=== PATIENT | female | born 1985 | race American Indian/Alaskan Native ===

== ENCOUNTER 2020-04-08 14:38 | Inpatient (IN) | payer MEDICAID ==
[2020-04-08] MEDS ORDERED: LACTATED RINGERS 500 ML IV ONE (14:57)
[2020-04-08 16:05] LABS: Mean Corpuscular HGB Conc 29 % (30-34); Platelet Count 144 K/mm3 (140-440); Red Blood Count 3.14 M/mm3 (3.65-5.03)
[2020-04-08 16:09] LABS: Hematocrit 19.1 % (30.3-42.9); Hemoglobin 5.6 gm/dl (10.1-14.3); Mean Corpuscular Volume 61 fl (79-97); Red Cell Distribution Width 20.3 % (13.2-15.2)
[2020-04-08 16:10] LABS: Creatinine,Urine 21.5 mg/dL (0.1-20.0); Protein/Creatinine Ratio,Urine 1.63
[2020-04-08 16:11] LABS: Bacteria,Urine 1+ /HPF (Negative); Bilirubin,Urine NEG (Negative); Blood,Urine NEG (Negative); Color,Urine Straw (Yellow); Urobilinogen,Urine < 2.0 mg/dL (<2.0)
[2020-04-08 16:19] LABS: Alanine Aminotransferase 13 units/L (7-56); Uric Acid 5.4 mg/dL (3.5-7.6)
[2020-04-08] MEDS ORDERED: SODIUM CHLORIDE 0.9% 500 ML 500 ML IV SCH (16:33)
[2020-04-08] MEDS ORDERED: TERBUTALINE 1 MG/1 ML INJ SUB-Q ONE (16:35)
[2020-04-08] MEDS ORDERED: LACTATED RINGERS 1,000 ML ONE (18:58)
--- NOTE | 2020-04-08 20:19 | Ultrasound Report ---
Limited OB ultrasound for biophysical profile FINDINGS: Twin is seen. heart rate for fetus A is 153 bpm. There is vertical pocket o f fluid measuring 5.5 cm. breathing movement, spontaneous motion, posture and tone all score 2 out of 2 with qualitative RADHA also scoring 2 for a total of 8/8. heart rate for fetus B is 157 bpm. Biophysical profile for B is also 8/8. Signer Name: Eyad Willis MD Signed: 04/08/2020 8:14 PM Workstation Name: [id number]
--- NOTE | 2020-04-08 20:25 | Ultrasound Report ---
See prior report Signer Name: Eyad Willis MD Signed: 04/08/2020 8:20 PM Workstation Name: [id number]
[2020-04-09 08:05] LABS: Hematocrit 23.5 % (30.3-42.9); Mean Corpuscular HGB Conc 30 % (30-34); Platelet Count 127 K/mm3 (140-440); Red Blood Count 3.54 M/mm3 (3.65-5.03)
[2020-04-09 08:12] LABS: Mean Corpuscular Volume 66 fl (79-97); Red Cell Distribution Width 25.8 % (13.2-15.2)
[2020-04-09 08:28] LABS: Alanine Aminotransferase 16 units/L (7-56); Albumin 2.9 g/dL (3.9-5); BUN/Creatinine Ratio 12; Blood Urea Nitrogen 6 mg/dL (7-17); Calcium 8.1 mg/dL (8.4-10.2); Hemolysis Index 2
--- NOTE | 2020-04-09 08:45 | History and Physical Report ---
History of Present Illness Date of examination: 04/08/20 Date of admission: 04/08/20 14:39 Chief complaint: Facial swelling History of present illness: 34-year-old at 29+4 weeks who presents with a chief complaint of facial swelling. The patient's course is complicated by advanced maternal age, iron deficiency anemia and twin gestation. The patient has been monitored by maternal- medicine for labile blood pressures and was scheduled to p erform a 24-hour urine collection. She is currently not taking antihypertensives. Past History Past Medical History: other (Anemia) Social history: - Obstetrical History Expected Date of Delivery: 06/23/20 Actual Gestation: 29 Week(s) 2 Day(s) : 4 Para: 3 Hx # Term Pregnancies: 3 Number of Pregnancies: 0 Spontaneous Abortions: 0 Induced : 0 Number of Living Children: 4 Medications and Allergies Allergies Allergy/AdvReac Type Severity Reaction Status Date / Time No Known Allergies Allergy Verified 04/08/20 14:57 Home Medications Medication Instructions Recorded Confirmed Last Taken Type Ferrous Sulfate [Ferrous Sulfate 300 mg PO BID #60 ml 11/07/14 04/08/20 Unknown Rx Oral Liq 300 Mg/5 Ml] Active Meds: Active Medications Sodium Chloride (Nacl 0.9% 500 Ml) 500 mls @ 0 mls/hr IV ONCE LEON Review of Systems All systems: negative - Vital Signs Vital signs: Vital Signs Pulse BP 83 147/87 04/08/20 15:15 04/08/20 15:15 Temp Pulse Resp BP Pulse Ox 98.6 F 88 21 182/82 97 04/09/20 07:23 04/09/20 08:42 04/09/20 02:07 04/09/20 08:40 04/09/20 08:42 - Physical Exam Breasts: Positive: deferred Cardiovascular: Regular rate Lungs: Positive: Clear to auscultation Results Result Diagrams: 04/09/20 07:08 04/09/20 07:08 Abnormal lab results 04/08/20 04/08/20 04/08/20 Range/Units 15:54 15:54 15:54 WBC (4.5-11.0) K/mm3 RBC 3.14 L (3.65-5.03) M/mm3 Hgb 5.6 L* (10.1-14.3) gm/dl Hct 19.1 L* (30.3-42.9) % MCV 61 L (79-97) fl MCH 18 L (28-32) pg MCHC 29 L (30-34) % RDW 20.3 H (13.2-15.2) % Plt Count (140-440) K/mm3 Carbon Dioxide (22-30) mmol/L BUN (7-17) mg/dL Creatinine 0.5 L (0.7-1.2) mg/dL Calcium (8.4-10.2) mg/dL Lactate Dehydrogenase 433 H (91-180) units/L Total Protein (6.3-8.2) g/dL Albumin (3.9-5) g/dL Ur Specific [place] 1.002 L (1.003-1.030) Urine Creatinine (0.1-20.0) mg/dL Urine Total Protein (5-11.8) mg/dL Crossmatch 04/08/20 04/08/20 04/09/20 Range/Units 15:54 18:26 07:08 WBC 11.1 H (4.5-11.0) K/mm3 RBC 3.54 L (3.65-5.03) M/mm3 Hgb 7.0 L (10.1-14.3) gm/dl Hct 23.5 L (30.3-42.9) % MCV 66 L (79-97) fl MCH 20 L (28-32) pg MCHC (30-34) % RDW 25.8 H (13.2-15.2) % Plt Count 127 L (140-440) K/mm3 Carbon Dioxide (22-30) mmol/L BUN (7-17) mg/dL Creatinine (0.7-1.2) mg/dL Calcium (8.4-10.2) mg/dL Lactate Dehydrogenase (91-180) units/L Total Protein (6.3-8.2) g/dL Albumin (3.9-5) g/dL Ur Specific [place] (1.003-1.030) Urine Creatinine 21.5 H (0.1-20.0) mg/dL Urine Total Protein 35 H (5-11.8) mg/dL Crossmatch See Detail 04/09/20 Range/Units 07:08 WBC (4.5-11.0) K/mm3 RBC (3.65-5.03) M/mm3 Hgb (10.1-14.3) gm/dl Hct (30.3-42.9) % MCV (79-97) fl MCH (28-32) pg MCHC (30-34) % RDW (13.2-15.2) % Plt Count (140-440) K/mm3 Carbon Dioxide 18 L (22-30) mmol/L BUN 6 L (7-17) mg/dL Creatinine 0.5 L (0.7-1.2) mg/dL Calcium 8.1 L (8.4-10.2) mg/dL Lactate Dehydrogenase (91-180) units/L Total Protein 6.2 L (6.3-8.2) g/dL Albumin 2.9 L (3.9-5) g/dL Ur Specific [place] (1.003-1.030) Urine Creatinine (0.1-20.0) mg/dL Urine Total Protein (5-11.8) mg/dL Crossmatch All other labs normal. Assessment and Plan - Patient Problems (1) Twin gestation in second trimester Current Visit: Yes Status: Acute Plan to address problem: will admit for observation of blood pressures Transfused 2 units packed red blood cells Initiate 24-hour urine collection (2) Elevated blood pressure affecting in second trimester, antepartum Current Visit: Yes Status: Acute (3) Anemia due to chronic blood loss Current Visit: Yes Status: Acute
[2020-04-09] MEDS ORDERED: DOCUSATE SODIUM 100 MG CAP PO PRN (10:00)
[2020-04-09] MEDS: PRENATAL VIT27-FE FUMARATE-FOLIC ACID VIT TAB PO SCH (10:28)
[2020-04-09] MEDS: FERROUS SULFATE 308 MG (62mg Elemental Iron) / 7 ML ELIXIR PO SCH (10:29)
[2020-04-09] MEDS: BETAMET ACET/BETAMET NA PH 6 MG/ML INJ 5 ML MDV IM SCH (10:30)
[2020-04-09 10:57] LABS: Anisocytosis 2+; Band Neutrophils # (Manual) 0.2 K/mm3; Basophils % (Manual) 0 % (0.0-1.8); Hypochromasia 2+; Platelet Estimate Consistent w Auto; Total Cells Counted 100
[2020-04-09] MEDS ORDERED: hydrALAZINE 20 MG/1 ML INJ IV PRN (20:11)
[2020-04-10] MEDS: PRENATAL VIT27-FE FUMARATE-FOLIC ACID VIT TAB PO SCH (09:49)
[2020-04-10] MEDS: FERROUS SULFATE 308 MG (62mg Elemental Iron) / 7 ML ELIXIR PO SCH (09:50)
[2020-04-10] MEDS: BETAMET ACET/BETAMET NA PH 6 MG/ML INJ 5 ML MDV IM SCH (09:53)
[2020-04-10 13:30] LABS: Creatinine,Urine 77.7 mg/dL (0.1-20.0)
[2020-04-10] MEDS ORDERED: SODIUM CHLORIDE 0.9% 500 ML 500 ML IV NR (16:20)
[2020-04-10] MEDS ORDERED: ACETAMINOPHEN 325 MG TAB PO NR (16:20)
[2020-04-10] MEDS ORDERED: diphenhydrAMINE 50 MG/ML VIAL IV NR (16:20)
--- NOTE | 2020-04-10 16:42 | Consultation ---
History of Present Illness Consult date: 04/10/20 Requesting physician: ANALY AGUILAR History of present illness: 34-year-old at 29 5/7 weeks who presents with a chief complaint of fac ial swelling Now with Preeclampsia BP now 130-140/80 Occ elevated BP172/89 but nurse retook BP as cuff was "compressed and when this happens BP's increases but reverts back to 130- 140/80's when not compressed - started on Labetalol Now states facial swelling better Denies CONDE's scotoma or RUQ pain bleeding leaking Pos FM's -------- H/O Anemai has received 2 UPRBC's H/H increased from 5.6/ to 06/01 - Plts borderline Low 144 then 127K AST/ALT 24 Hour urine - 1187 mg Known IUGR Twin A at 3% and Twin B at 19% - APA Dopplers 3.0 Twin A and 2.9 [facility] both Twin A and B Denies med ds, Surg C/S X 2 NKA no C/D/D Abd gravid NT Ext tr edema NT dtr 2/4 no clonus Past History Past Medical History: other (Anemia) - Obstetrical History : 4 Medications and Allergies Allergies Allergy/AdvReac Type Severity Reaction Status Date / Time No Known Allergies Allergy Verified 04/08/20 14:57 Home Medications Medication Instructions Recorded Confirmed Last Taken Type Ferrous Sulfate [Ferrous Sulfate 300 mg PO BID #60 ml 11/07/14 04/08/20 Unknown Rx Oral Liq 300 Mg/5 Ml] Active Meds: Active Medications Acetaminophen (Tylenol) 650 mg PO ONCE NR Stop: 04/10/20 23:59 Diphenhydramine HCl (Benadryl) 25 mg IV ONCE NR Stop: 04/10/20 23:59 Docusate Sodium (Colace) 100 mg PO Q12H PRN PRN Reason: Constipation Ferrous Sulfate (Ferrous Sulfate) 308 mg PO QDAY LEON Last Admin: 04/10/20 09:50 Dose: 308 mg Documented by: Hydralazine HCl (Apresoline) 5 mg IV Q30MIN PRN PRN Reason: Hypertension Sodium Chloride (Nacl 0.9% 500 Ml) 500 mls @ 0 mls/hr IV ONCE LEON Sodium Chloride (Nacl 0.9% 500 Ml) 500 mls @ 0 mls/hr IV ONCE NR Stop: 04/10/20 23:59 Labetalol HCl (Labetalol) 300 mg PO BID [facility] Last Admin: 04/10/20 09:48 Dose: 300 mg Documented by: Multivitamins/Iron/Calcium ( Vitamin) 1 each PO QDAY [facility] Last Admin: 04/10/20 09:49 Dose: 1 each Documented by: - Vital Signs Vital signs: Vital Signs Pulse BP 83 147/87 04/08/20 15:15 04/08/20 15:15 Temp Pulse Resp BP Pulse Ox 98.3 F 80 18 136/77 97 04/10/20 16:05 04/10/20 16:41 04/10/20 16:05 04/10/20 16:41 04/10/20 16:41 Results Result Diagrams: 04/09/20 07:08 04/09/20 07:08 Abnormal lab results 04/08/20 04/10/20 Range/Units 18:26 09:30 Urine Creatinine 77.7 H (0.1-20.0) mg/dL Ur Total Protein 24 Hr 1187.50 H (2-200) mg/dL Urine Total Protein 95 H (5-11.8) mg/dL Crossmatch See Detail All other labs normal. Assessment and Plan Impression: 1. Di/Di Twin IUP at 29 5/7 weeks 2. Preeclampsia 3. IUGR Twin A 4. Anemia 5. Prior C/S X 2 6. H/O Receiving Blood Tranfusions "with all pregnancies" 7. MO 8. AMA 9. Borderline Thrombocytopenia Recommendations: 1. Transfuse 2 additional units PRBCs 2. Steroids for FLM 3. BPP and Cord Dopplers twice per week while in house 4. Labetalol 300 BID 5. Repeat CBC and CMP tomorrow 6. Will consider in house management verse close twice weekly A-P surveillance pending labs and review of BP's 7. Will consider Mg for neuroprophylaxis pending labs tomorrow 8. Seq Leg compressors 9. Delivery for S/S of severe preeclampsia or compromise 10. Aim for delivery at 34 weeks if remains stable
--- NOTE | 2020-04-10 17:27 | Progress Note ---
Assessment and Plan 1. Di/Di Twin IUP at 29 5/7 weeks Preeclampsia IUGR Twin A Anemia Prior C/S X 2 H/O Receiving Blood Tranfusions "with all pregnancies" MO AMA Borderline Thrombocytopenia Transfuse 2 additional units PRBCs- last hgb 7 s/p Steroids for FLM BPP and Cord Dopplers twice per week while in house- Labetalol 300 BID Repeat CBC and CMP tomorrow appreciate MFM recommnedations Will consider in house management verse close twice weekly A-P surveillance pending labs and review of BP's Will consider Mg for neuroprophylaxis pending labs tomorrow Seq Leg compressors Delivery for S/S of severe preeclampsia or compromise Aim for delivery at 34 weeks if remains stable Subjective - Subjective Date of service: 04/10/20 Principal diagnosis: elevated BP, edna twins Patient reports: movement normal, no new complaints, no loss of fluid, no vaginal bleeding, no contractions Objective - Vital Signs Vital Signs: Vital Signs - 12hr 04/10/20 04/10/20 04/10/20 05:23 05:26 05:29 Temperature Pulse Rate 77 89 86 Respiratory Rate Blood Pressure Blood Pressure [Left] O2 Sat by Pulse 90 98 93 Oximetry 04/10/20 04/10/20 04/10/20 05:31 05:36 05:41 Temperature Pulse Rate 85 83 81 Respiratory Rate Blood Pressure 132/61 Blood Pressure [Left] O2 Sat by Pulse 96 94 96 Oximetry 04/10/20 04/10/20 04/10/20 05:44 05:46 05:51 Temperature Pulse Rate 88 84 85 Respiratory Rate Blood Pressure Blood Pressure [Left] O2 Sat by Pulse 94 96 96 Oximetry 04/10/20 04/10/20 04/10/20 05:56 06:01 06:06 Temperature Pulse Rate 83 79 82 Respiratory Rate Blood Pressure Blood Pressure [Left] O2 Sat by Pulse 96 97 96 Oximetry 04/10/20 04/10/20 04/10/20 06:11 06:16 06:21 Temperature Pulse Rate 78 82 84 Respiratory Rate Blood Pressure 120/61 Blood Pressure [Left] O2 Sat by Pulse 96 98 98 Oximetry 04/10/20 04/10/20 04/10/20 06:26 06:31 06:36 Temperature Pulse Rate 85 82 84 Respiratory Rate Blood Pressure Blood Pressure [Left] O2 Sat by Pulse 97 97 97 Oximetry 04/10/20 04/10/20 04/10/20 06:40 06:42 06:46 Temperature Pulse Rate 98 H 97 H 86 Respiratory Rate Blood Pressure 169/79 Blood Pressure [Left] O2 Sat by Pulse 100 98 Oximetry 04/10/20 04/10/20 04/10/20 06:51 06:56 07:01 Temperature Pulse Rate 83 81 84 Respiratory Rate Blood Pressure Blood Pressure [Left] O2 Sat by Pulse 97 97 97 Oximetry 04/10/20 04/10/20 04/10/20 07:06 07:07 07:11 Temperature Pulse Rate 80 88 86 Respiratory Rate Blood Pressure 146/82 150/83 Blood Pressure [Left] O2 Sat by Pulse 96 97 Oximetry 04/10/20 04/10/20 04/10/20 07:15 07:16 07:21 Temperature 98.1 F Pulse Rate 85 89 Respiratory 18 Rate Blood Pressure Blood Pressure [Left] O2 Sat by Pulse 97 97 Oximetry 04/10/20 04/10/20 04/10/20 07:39 07:41 07:44 Temperature Pulse Rate 83 82 85 Respiratory Rate Blood Pressure 144/74 144/74 Blood Pressure [Left] O2 Sat by Pulse 99 99 Oximetry 04/10/20 04/10/20 04/10/20 07:49 07:54 07:58 Temperature Pulse Rate 89 85 79 Respiratory Rate Blood Pressure Blood Pressure [Left] O2 Sat by Pulse 100 99 98 Oximetry 04/10/20 04/10/20 04/10/20 08:03 08:08 08:11 Temperature Pulse Rate 80 87 82 Respiratory Rate Blood Pressure 143/76 Blood Pressure [Left] O2 Sat by Pulse 97 98 Oximetry 04/10/20 04/10/20 04/10/20 08:13 08:18 08:23 Temperature Pulse Rate 84 79 83 Respiratory Rate Blood Pressure Blood Pressure [Left] O2 Sat by Pulse 97 97 97 Oximetry 04/10/20 04/10/20 04/10/20 08:28 08:33 08:39 Temperature Pulse Rate 79 81 80 Respiratory Rate Blood Pressure Blood Pressure [Left] O2 Sat by Pulse 98 97 97 Oximetry 04/10/20 04/10/20 04/10/20 08:41 08:44 08:49 Temperature Pulse Rate 80 81 83 Respiratory Rate Blood Pressure 145/75 Blood Pressure [Left] O2 Sat by Pulse 98 98 Oximetry 04/10/20 04/10/20 04/10/20 08:54 08:59 09:00 Temperature Pulse Rate 86 86 78 Respiratory Rate Blood Pressure 145/77 Blood Pressure [Left] O2 Sat by Pulse 100 98 Oximetry 04/10/20 04/10/20 04/10/20 09:04 09:09 09:11 Temperature Pulse Rate 81 82 86 Respiratory Rate Blood Pressure 147/79 Blood Pressure [Left] O2 Sat by Pulse 97 97 Oximetry 04/10/20 04/10/20 04/10/20 09:14 09:19 09:24 Temperature Pulse Rate 101 H 82 86 Respiratory Rate Blood Pressure Blood Pressure [Left] O2 Sat by Pulse 99 98 99 Oximetry 04/10/20 04/10/20 04/10/20 09:29 09:34 09:39 Temperature Pulse Rate 96 H 109 H 95 H Respiratory Rate Blood Pressure Blood Pressure [Left] O2 Sat by Pulse 98 99 97 Oximetry 04/10/20 04/10/20 04/10/20 09:41 09:44 09:46 Temperature Pulse Rate 96 H 96 H 84 Respiratory Rate Blood Pressure 161/79 153/76 Blood Pressure [Left] O2 Sat by Pulse 99 Oximetry 04/10/20 04/10/20 04/10/20 09:48 09:49 09:54 Temperature Pulse Rate 81 81 93 H Respiratory Rate Blood Pressure 153/76 Blood Pressure [Left] O2 Sat by Pulse 98 99 Oximetry 04/10/20 04/10/20 04/10/20 09:59 10:04 10:09 Temperature Pulse Rate 91 H 87 85 Respiratory Rate Blood Pressure Blood Pressure [Left] O2 Sat by Pulse 97 98 98 Oximetry 04/10/20 04/10/20 04/10/20 10:11 10:14 10:19 Temperature Pulse Rate 81 83 85 Respiratory Rate Blood Pressure 144/75 Blood Pressure [Left] O2 Sat by Pulse 97 98 Oximetry 04/10/20 04/10/20 04/10/20 10:24 10:29 10:35 Temperature Pulse Rate 84 82 89 Respiratory Rate Blood Pressure Blood Pressure [Left] O2 Sat by Pulse 98 98 97 Oximetry 04/10/20 04/10/20 04/10/20 10:40 10:41 10:45 Temperature Pulse Rate 83 80 86 Respiratory Rate Blood Pressure 143/81 Blood Pressure [Left] O2 Sat by Pulse 98 97 Oximetry 04/10/20 04/10/20 04/10/20 10:50 10:55 11:00 Temperature Pulse Rate 80 81 84 Respiratory Rate Blood Pressure Blood Pressure [Left] O2 Sat by Pulse 98 98 97 Oximetry 04/10/20 04/10/20 04/10/20 11:05 11:10 11:11 Temperature Pulse Rate 84 89 85 Respiratory Rate Blood Pressure 172/89 Blood Pressure [Left] O2 Sat by Pulse 98 98 Oximetry 04/10/20 04/10/20 04/10/20 11:15 11:20 11:21 Temperature Pulse Rate 81 83 78 Respiratory Rate Blood Pressure Blood Pressure [Left] O2 Sat by Pulse 97 97 94 Oximetry 04/10/20 04/10/20 04/10/20 11:25 11:30 11:32 Temperature 98.3 F Pulse Rate 81 82 85 Respiratory 18 Rate Blood Pressure 134/82 Blood Pressure [Left] O2 Sat by Pulse 94 95 Oximetry 04/10/20 04/10/20 04/10/20 11:35 11:40 11:41 Temperature Pulse Rate 80 81 80 Respiratory Rate Blood Pressure 139/82 Blood Pressure [Left] O2 Sat by Pulse 94 96 Oximetry 04/10/20 04/10/20 04/10/20 11:45 11:50 11:55 Temperature Pulse Rate 82 82 84 Respiratory Rate Blood Pressure Blood Pressure [Left] O2 Sat by Pulse 96 95 95 Oximetry 04/10/20 04/10/20 04/10/20 11:57 12:00 12:05 Temperature Pulse Rate 81 86 82 Respiratory Rate Blood Pressure Blood Pressure [Left] O2 Sat by Pulse 94 96 96 Oximetry 04/10/20 04/10/20 04/10/20 12:10 12:11 12:13 Temperature Pulse Rate 88 82 87 Respiratory Rate Blood Pressure 140/75 Blood Pressure [Left] O2 Sat by Pulse 97 93 Oximetry 04/10/20 04/10/20 04/10/20 12:15 12:20 12:25 Temperature Pulse Rate 88 90 93 H Respiratory Rate Blood Pressure Blood Pressure [Left] O2 Sat by Pulse 97 97 95 Oximetry 04/10/20 04/10/20 04/10/20 12:28 12:30 12:35 Temperature Pulse Rate 91 H 90 86 Respiratory Rate Blood Pressure Blood Pressure [Left] O2 Sat by Pulse 92 92 100 Oximetry 04/10/20 04/10/20 04/10/20 12:40 12:41 12:45 Temperature Pulse Rate 85 83 86 Respiratory Rate Blood Pressure 124/58 Blood Pressure [Left] O2 Sat by Pulse 98 97 Oximetry 04/10/20 04/10/20 04/10/20 12:50 12:54 13:00 Temperature Pulse Rate 85 88 84 Respiratory Rate Blood Pressure Blood Pressure [Left] O2 Sat by Pulse 97 97 97 Oximetry 04/10/20 04/10/20 04/10/20 13:05 13:10 13:11 Temperature Pulse Rate 85 83 80 Respiratory Rate Blood Pressure 140/63 Blood Pressure [Left] O2 Sat by Pulse 97 98 Oximetry 04/10/20 04/10/20 04/10/20 13:15 13:20 13:25 Temperature Pulse Rate 88 82 85 Respiratory Rate Blood Pressure Blood Pressure [Left] O2 Sat by Pulse 99 97 97 Oximetry 04/10/20 04/10/20 04/10/20 13:30 13:35 13:40 Temperature Pulse Rate 84 85 80 Respiratory Rate Blood Pressure Blood Pressure [Left] O2 Sat by Pulse 96 95 98 Oximetry 04/10/20 04/10/20 04/10/20 13:41 13:45 13:49 Temperature Pulse Rate 90 83 86 Respiratory Rate Blood Pressure 147/79 Blood Pressure [Left] O2 Sat by Pulse 96 94 Oximetry 04/10/20 04/10/20 04/10/20 13:50 13:55 14:00 Temperature Pulse Rate 83 95 H 86 Respiratory Rate Blood Pressure Blood Pressure [Left] O2 Sat by Pulse 95 96 98 Oximetry 04/10/20 04/10/20 04/10/20 14:05 14:10 14:11 Temperature Pulse Rate 79 99 H 88 Respiratory Rate Blood Pressure 134/71 Blood Pressure [Left] O2 Sat by Pulse 98 98 Oximetry 04/10/20 04/10/20 04/10/20 14:15 14:20 14:25 Temperature Pulse Rate 81 92 H 91 H Respiratory Rate Blood Pressure Blood Pressure [Left] O2 Sat by Pulse 97 99 99 Oximetry 04/10/20 04/10/20 04/10/20 14:30 14:35 14:40 Temperature Pulse Rate 93 H 85 88 Respiratory Rate Blood Pressure Blood Pressure [Left] O2 Sat by Pulse 98 98 99 Oximetry 06/11/2904/10/20 04/10/20 14:41 14:45 14:50 Temperature Pulse Rate 93 H 92 H 86 Respiratory Rate Blood Pressure 155/80 Blood Pressure [Left] O2 Sat by Pulse 98 98 Oximetry 04/10/20 04/10/20 04/10/20 14:55 15:00 15:11 Temperature Pulse Rate 85 95 H 96 H Respiratory Rate Blood Pressure 153/83 Blood Pressure [Left] O2 Sat by Pulse 98 99 100 Oximetry 04/10/20 04/10/20 04/10/20 15:14 15:15 15:16 Temperature Pulse Rate 87 88 89 Respiratory Rate Blood Pressure 162/79 151/83 Blood Pressure [Left] O2 Sat by Pulse 100 Oximetry 04/10/20 04/10/20 04/10/20 15:21 15:26 15:31 Temperature Pulse Rate 86 81 86 Respiratory Rate Blood Pressure Blood Pressure [Left] O2 Sat by Pulse 99 99 99 Oximetry 04/10/20 04/10/20 04/10/20 15:36 15:41 15:46 Temperature Pulse Rate 88 93 H 85 Respiratory Rate Blood Pressure 171/85 Blood Pressure [Left] O2 Sat by Pulse 99 99 99 Oximetry 04/10/20 04/10/20 04/10/20 15:51 15:56 16:01 Temperature Pulse Rate 86 82 108 H Respiratory Rate Blood Pressure Blood Pressure [Left] O2 Sat by Pulse 99 100 100 Oximetry 04/10/20 04/10/20 04/10/20 16:03 16:05 16:06 Temperature 98.3 F Pulse Rate 91 H 83 Respiratory 18 Rate Blood Pressure 145/84 Blood Pressure [Left] O2 Sat by Pulse 100 Oximetry 04/10/20 04/10/20 04/10/20 16:10 16:11 16:16 Temperature Pulse Rate 86 87 82 Respiratory Rate Blood Pressure 151/82 Blood Pressure [Left] O2 Sat by Pulse 98 99 Oximetry 04/10/20 04/10/20 04/10/20 16:20 16:26 16:31 Temperature Pulse Rate 90 89 92 H Respiratory Rate Blood Pressure Blood Pressure [Left] O2 Sat by Pulse 98 99 100 Oximetry 04/10/20 04/10/20 04/10/20 16:36 16:41 16:46 Temperature Pulse Rate 84 80 84 Respiratory Rate Blood Pressure 136/77 Blood Pressure [Left] O2 Sat by Pulse 99 97 98 Oximetry 04/10/20 04/10/20 04/10/20 16:51 16:56 17:01 Temperature Pulse Rate 84 82 85 Respiratory Rate Blood Pressure Blood Pressure [Left] O2 Sat by Pulse 98 99 98 Oximetry 04/10/20 04/10/20 04/10/20 17:06 17:11 17:16 Temperature Pulse Rate 82 85 86 Respiratory Rate Blood Pressure 140/78 Blood Pressure [Left] O2 Sat by Pulse 98 98 99 Oximetry 04/10/20 04/10/20 17:17 17:21 Temperature 99.1 F Pulse Rate 82 91 H Respiratory 20 Rate Blood Pressure Blood Pressure 140/78 [Left] O2 Sat by Pulse 99 99 Oximetry - Exam Breasts: normal Cardiovascular: Regular rate, Normal S1 Lungs: Clear to auscultation, Normal air movement Abdomen: Present: normal appearance, soft, normal bowel sounds. Absent: distention, tenderness, guarding Vulva: both: normal Uterus: Present: normal, firm, fundal height below umbilicus. Absent: bogginess, tenderness FHR: auscultation normal Extremities: normal Deep Tendon Reflex Grade: Normal +2 - Labs Labs: Abnormal Labs 04/08/20 04/08/20 04/08/20 15:54 15:54 15:54 WBC RBC 3.14 L Hgb 5.6 L* Hct 19.1 L* MCV 61 L MCH 18 L MCHC 29 L RDW 20.3 H Plt Count Seg Neuts % (Manual) Lymphocytes % (Manual) Nucleated RBC % Seg Neutrophils # Man Lymphocytes # (Manual) Carbon Dioxide BUN Creatinine 0.5 L Calcium Lactate Dehydrogenase 433 H Total Protein Albumin Ur Specific [place] 1.002 L Urine Creatinine Ur Total Protein 24 Hr Urine Total Protein Crossmatch 04/08/20 04/08/20 04/09/20 15:54 18:26 07:08 WBC 11.1 H RBC 3.54 L Hgb 7.0 L Hct 23.5 L MCV 66 L MCH 20 L MCHC RDW 25.8 H Plt Count 127 L Seg Neuts % (Manual) 84.0 H Lymphocytes % (Manual) 7.0 L Nucleated RBC % 7.0 H Seg Neutrophils # Man 9.3 H Lymphocytes # (Manual) 0.8 L Carbon Dioxide BUN Creatinine Calcium Lactate Dehydrogenase Total Protein Albumin Ur Specific [place] Urine Creatinine 21.5 H Ur Total Protein 24 Hr Urine Total Protein 35 H Crossmatch See Detail 04/09/20 04/10/20 07:08 09:30 WBC RBC Hgb Hct MCV MCH MCHC RDW Plt Count Seg Neuts % (Manual) Lymphocytes % (Manual) Nucleated RBC % Seg Neutrophils # Man Lymphocytes # (Manual) Carbon Dioxide 18 L BUN 6 L Creatinine 0.5 L Calcium 8.1 L Lactate Dehydrogenase Total Protein 6.2 L Albumin 2.9 L Ur Specific [place] Urine Creatinine 77.7 H Ur Total Protein 24 Hr 1187.50 H Urine Total Protein 95 H Crossmatch Laboratory Results - last 24 hr 04/08/20 04/10/20 18:26 09:30 Urine Total Volume 1250 Urine Creatinine 77.7 H Ur Creatinine 24 Hour 1.0 Ur Total Protein 24 Hr 1187.50 H Urine Urea Nitrogen 316 Ur Urea Nitrogen 24 Hr 3.95 Urine Total Protein 95 H Crossmatch See Detail
[2020-04-11 01:32] LABS: Hematocrit 25.5 % (30.3-42.9); Hemoglobin 7.9 gm/dl (10.1-14.3); Mean Corpuscular HGB Conc 31 % (30-34); Platelet Count 152 K/mm3 (140-440); Red Blood Count 3.74 M/mm3 (3.65-5.03)
[2020-04-11 01:37] LABS: Mean Corpuscular Volume 68 fl (79-97); Red Cell Distribution Width 28.4 % (13.2-15.2)
[2020-04-11] MEDS ORDERED: LACTATED RINGERS 1,000 ML IV SCH (03:00)
[2020-04-11 07:42] LABS: Alanine Aminotransferase 16 units/L (7-56); Albumin 2.8 g/dL (3.9-5); BUN/Creatinine Ratio 12; Blood Urea Nitrogen 6 mg/dL (7-17); Calcium 8.3 mg/dL (8.4-10.2); Hemolysis Index 2
[2020-04-11 07:43] LABS: Hematocrit 22.4 % (30.3-42.9); Hemoglobin 6.9 gm/dl (10.1-14.3); Mean Corpuscular HGB Conc 31 % (30-34); Platelet Count 134 K/mm3 (140-440); Red Blood Count 3.31 M/mm3 (3.65-5.03)
[2020-04-11 07:49] LABS: Mean Corpuscular Volume 68 fl (79-97)
[2020-04-11 07:50] LABS: Red Cell Distribution Width 28.9 % (13.2-15.2)
--- NOTE | 2020-04-11 07:56 | Progress Note ---
Assessment and Plan 1. Di/Di Twin IUP at 29 6/7 weeks Preeclampsia IUGR Twin A Anemia Prior C/S X 2 H/O Receiving Blood Tranfusions "with all pregnancies" MO AMA Borderline Thrombocytopenia leukocytes Transfuse 2 additional units PRBCs- last hgb 7 s/p Steroids for FLM BPP and Cord Dopplers twice per week while in house- Labetalol 300 BID Repeat CBC and CMP tomorrow appreciate MFM recommendations Will consider in house management verse close twice weekly A-P surveillance pending labs and review of BP's Will consider Mag for neuroprophylaxis pending labs tomorrow Seq Leg compressors Delivery for S/S of severe preeclampsia or compromise Aim for delivery at 34 weeks if remains stable Subjective - Subjective Date of service: 04/11/20 Principal diagnosis: elevated BP, edna twins Patient reports: movement normal, no new complaints, no loss of fluid, no vaginal bleeding, no contractions Objective - Vital Signs Vital Signs: Vital Signs - 12hr 04/10/20 04/10/20 04/10/20 20:00 20:02 20:07 Temperature 98.5 F Pulse Rate 96 H 92 H 92 H Respiratory 20 Rate Blood Pressure 148/83 148/83 O2 Sat by Pulse 98 98 98 Oximetry 04/10/20 04/10/20 04/10/20 20:12 20:15 20:17 Temperature Pulse Rate 92 H 93 H 92 H Respiratory Rate Blood Pressure 121/75 O2 Sat by Pulse 98 98 Oximetry 04/10/20 04/10/20 04/10/20 20:22 20:27 20:30 Temperature 99.1 F Pulse Rate 91 H 91 H 92 H Respiratory 18 Rate Blood Pressure 135/82 O2 Sat by Pulse 98 99 98 Oximetry 04/10/20 04/10/20 04/10/20 20:32 20:37 20:42 Temperature Pulse Rate 92 H 101 H 95 H Respiratory Rate Blood Pressure O2 Sat by Pulse 98 98 98 Oximetry 04/10/20 04/10/20 04/10/20 20:47 20:52 20:57 Temperature Pulse Rate 92 H 88 95 H Respiratory Rate Blood Pressure O2 Sat by Pulse 98 97 98 Oximetry 04/10/20 04/10/20 04/10/20 21:00 21:02 21:07 Temperature 98.6 F Pulse Rate 95 H 101 H 92 H Respiratory 19 Rate Blood Pressure 152/76 152/76 O2 Sat by Pulse 98 97 98 Oximetry 04/10/20 04/10/20 04/10/20 21:12 21:17 21:22 Temperature Pulse Rate 94 H 98 H 90 Respiratory Rate Blood Pressure 141/92 O2 Sat by Pulse 97 99 97 Oximetry 04/10/20 04/10/20 04/10/20 21:27 21:32 21:37 Temperature Pulse Rate 82 93 H 93 H Respiratory Rate Blood Pressure 145/84 O2 Sat by Pulse 97 96 97 Oximetry 04/10/20 04/10/20 04/10/20 21:42 21:45 21:47 Temperature Pulse Rate 92 H 96 H 96 H Respiratory Rate Blood Pressure 150/81 O2 Sat by Pulse 97 98 Oximetry 04/10/20 04/10/20 04/10/20 21:52 21:57 22:00 Temperature Pulse Rate 90 90 87 Respiratory Rate Blood Pressure 156/90 O2 Sat by Pulse 97 98 Oximetry 04/10/20 04/10/20 04/10/20 22:02 22:07 22:12 Temperature Pulse Rate 86 96 H 96 H Respiratory Rate Blood Pressure 156/90 O2 Sat by Pulse 98 98 98 Oximetry 04/10/20 04/10/20 04/10/20 22:15 22:17 22:22 Temperature Pulse Rate 96 H 92 H 95 H Respiratory Rate Blood Pressure 151/90 O2 Sat by Pulse 98 97 Oximetry 04/10/20 04/10/20 04/10/20 22:27 22:30 22:32 Temperature Pulse Rate 96 H 93 H 92 H Respiratory Rate Blood Pressure 154/78 O2 Sat by Pulse 99 99 Oximetry 04/10/20 04/10/20 04/10/20 22:37 22:42 22:46 Temperature Pulse Rate 91 H 94 H 90 Respiratory Rate Blood Pressure 159/76 O2 Sat by Pulse 99 98 Oximetry 04/10/20 04/10/20 04/10/20 22:47 22:52 22:57 Temperature Pulse Rate 91 H 90 94 H Respiratory Rate Blood Pressure O2 Sat by Pulse 99 99 98 Oximetry 04/10/20 04/10/20 04/10/20 23:00 23:02 23:07 Temperature Pulse Rate 102 H 95 H 94 H Respiratory Rate Blood Pressure 160/85 O2 Sat by Pulse 98 98 Oximetry 04/10/20 04/10/20 04/10/20 23:12 23:15 23:17 Temperature Pulse Rate 92 H 90 94 H Respiratory Rate Blood Pressure 148/75 O2 Sat by Pulse 99 99 Oximetry 04/10/20 04/10/20 04/10/20 23:22 23:27 23:30 Temperature Pulse Rate 95 H 94 H 96 H Respiratory Rate Blood Pressure 156/76 O2 Sat by Pulse 98 99 Oximetry 04/10/20 04/10/20 04/10/20 23:32 23:37 23:42 Temperature Pulse Rate 95 H 96 H 94 H Respiratory Rate Blood Pressure O2 Sat by Pulse 99 98 98 Oximetry 04/10/20 04/10/20 04/10/20 23:45 23:47 23:52 Temperature Pulse Rate 93 H 95 H 98 H Respiratory Rate Blood Pressure 131/63 O2 Sat by Pulse 98 98 Oximetry 04/10/20 04/11/20 04/11/20 23:57 00:01 00:02 Temperature Pulse Rate 97 H 99 H 102 H Respiratory Rate Blood Pressure 143/72 O2 Sat by Pulse 98 98 Oximetry 04/11/20 04/11/20 04/11/20 00:22 00:27 00:30 Temperature Pulse Rate 107 H 95 H 92 H Respiratory Rate Blood Pressure 138/73 O2 Sat by Pulse 98 98 Oximetry 04/11/20 04/11/20 04/11/20 00:32 00:37 00:42 Temperature Pulse Rate 96 H 95 H 92 H Respiratory Rate Blood Pressure O2 Sat by Pulse 99 99 98 Oximetry 04/11/20 04/11/20 04/11/20 00:45 00:47 00:52 Temperature Pulse Rate 90 92 H 96 H Respiratory Rate Blood Pressure 133/71 O2 Sat by Pulse 98 99 Oximetry 04/11/20 04/11/20 04/11/20 00:57 01:00 01:02 Temperature Pulse Rate 101 H 95 H 104 H Respiratory Rate Blood Pressure 136/70 O2 Sat by Pulse 99 97 Oximetry 04/11/20 04/11/20 04/11/20 01:07 01:12 01:15 Temperature Pulse Rate 98 H 92 H 88 Respiratory Rate Blood Pressure 140/74 O2 Sat by Pulse 98 98 Oximetry 04/11/20 04/11/20 04/11/20 01:17 01:22 01:27 Temperature Pulse Rate 91 H 90 92 H Respiratory Rate Blood Pressure O2 Sat by Pulse 98 98 97 Oximetry 04/11/20 04/11/20 04/11/20 01:30 01:32 01:37 Temperature Pulse Rate 89 92 H 94 H Respiratory Rate Blood Pressure 136/73 O2 Sat by Pulse 97 98 Oximetry 04/11/20 04/11/20 04/11/20 01:42 01:45 01:47 Temperature Pulse Rate 93 H 91 H 90 Respiratory Rate Blood Pressure 137/76 O2 Sat by Pulse 98 99 Oximetry 04/11/20 04/11/20 04/11/20 01:52 01:57 02:00 Temperature Pulse Rate 98 H 92 H 93 H Respiratory Rate Blood Pressure 138/74 O2 Sat by Pulse 98 98 Oximetry 04/11/20 04/11/20 04/11/20 02:02 02:07 02:12 Temperature Pulse Rate 90 90 95 H Respiratory Rate Blood Pressure O2 Sat by Pulse 98 97 97 Oximetry 04/11/20 04/11/20 04/11/20 02:15 02:17 02:22 Temperature Pulse Rate 88 91 H 94 H Respiratory Rate Blood Pressure 139/73 O2 Sat by Pulse 97 97 Oximetry 04/11/20 04/11/20 04/11/20 02:27 02:30 02:32 Temperature Pulse Rate 93 H 91 H 89 Respiratory Rate Blood Pressure 140/74 O2 Sat by Pulse 97 97 Oximetry 04/11/20 04/11/20 04/11/20 02:37 02:42 02:46 Temperature Pulse Rate 89 95 H 94 H Respiratory Rate Blood Pressure 147/76 O2 Sat by Pulse 97 98 Oximetry 04/11/20 04/11/20 04/11/20 02:47 02:52 02:57 Temperature Pulse Rate 94 H 88 95 H Respiratory Rate Blood Pressure O2 Sat by Pulse 98 97 97 Oximetry 04/11/20 04/11/20 04/11/20 03:00 03:02 03:07 Temperature Pulse Rate 87 88 91 H Respiratory Rate Blood Pressure 144/76 O2 Sat by Pulse 98 98 Oximetry 04/11/20 04/11/20 04/11/20 03:12 03:15 03:17 Temperature Pulse Rate 94 H 88 86 Respiratory Rate Blood Pressure 145/74 O2 Sat by Pulse 99 99 Oximetry 04/11/20 04/11/20 04/11/20 03:22 03:31 03:36 Temperature Pulse Rate 87 89 88 Respiratory Rate Blood Pressure O2 Sat by Pulse 98 98 99 Oximetry 04/11/20 04/11/20 04/11/20 03:41 03:46 03:51 Temperature Pulse Rate 87 83 85 Respiratory Rate Blood Pressure O2 Sat by Pulse 98 99 99 Oximetry 04/11/20 04/11/20 04/11/20 03:56 04:01 04:06 Temperature Pulse Rate 89 84 94 H Respiratory Rate Blood Pressure O2 Sat by Pulse 99 99 97 Oximetry 04/11/20 04/11/20 04/11/20 04:11 04:16 04:21 Temperature Pulse Rate 91 H 84 94 H Respiratory Rate Blood Pressure O2 Sat by Pulse 97 98 98 Oximetry 04/11/20 04/11/20 04/11/20 04:26 04:30 04:31 Temperature Pulse Rate 92 H 88 94 H Respiratory Rate Blood Pressure 128/72 O2 Sat by Pulse 98 97 Oximetry 04/11/20 04/11/20 04/11/20 04:36 04:41 04:45 Temperature Pulse Rate 88 99 H 88 Respiratory Rate Blood Pressure 148/81 O2 Sat by Pulse 98 96 Oximetry 04/11/20 04/11/20 04/11/20 04:46 04:51 04:56 Temperature Pulse Rate 82 93 H 82 Respiratory Rate Blood Pressure O2 Sat by Pulse 99 98 98 Oximetry 04/11/20 04/11/20 04/11/20 05:01 05:06 05:11 Temperature Pulse Rate 81 78 79 Respiratory Rate Blood Pressure 155/81 O2 Sat by Pulse 99 97 97 Oximetry 04/11/20 04/11/20 04/11/20 05:16 05:21 05:26 Temperature Pulse Rate 84 93 H 94 H Respiratory Rate Blood Pressure O2 Sat by Pulse 98 97 97 Oximetry 04/11/20 04/11/20 04/11/20 05:31 05:36 05:41 Temperature Pulse Rate 88 80 89 Respiratory Rate Blood Pressure O2 Sat by Pulse 96 99 98 Oximetry 04/11/20 04/11/20 04/11/20 05:46 05:51 05:56 Temperature Pulse Rate 88 88 75 Respiratory Rate Blood Pressure O2 Sat by Pulse 99 99 96 Oximetry 04/11/20 04/11/20 04/11/20 06:01 06:02 06:06 Temperature Pulse Rate 97 H 77 73 Respiratory Rate Blood Pressure 127/64 O2 Sat by Pulse 98 97 Oximetry 06/02/20 06/02/20 06/02/20 06:11 06:15 06:16 Temperature Pulse Rate 75 78 76 Respiratory Rate Blood Pressure 126/63 O2 Sat by Pulse 97 98 Oximetry 04/11/20 04/11/20 04/11/20 06:21 06:26 06:30 Temperature Pulse Rate 78 74 77 Respiratory Rate Blood Pressure 125/64 O2 Sat by Pulse 97 97 Oximetry 04/11/20 04/11/20 04/11/20 06:31 06:36 06:41 Temperature Pulse Rate 77 74 77 Respiratory Rate Blood Pressure O2 Sat by Pulse 97 97 98 Oximetry 04/11/20 04/11/20 04/11/20 06:45 06:46 06:51 Temperature Pulse Rate 75 74 79 Respiratory Rate Blood Pressure 125/65 O2 Sat by Pulse 98 98 Oximetry 04/11/20 04/11/20 04/11/20 06:56 07:00 07:01 Temperature Pulse Rate 78 81 85 Respiratory Rate Blood Pressure 130/70 O2 Sat by Pulse 97 99 Oximetry 04/11/20 04/11/20 04/11/20 07:06 07:11 07:15 Temperature Pulse Rate 77 73 77 Respiratory Rate Blood Pressure 136/68 O2 Sat by Pulse 99 97 Oximetry 04/11/20 04/11/20 04/11/20 07:16 07:21 07:26 Temperature Pulse Rate 78 76 79 Respiratory Rate Blood Pressure O2 Sat by Pulse 99 98 98 Oximetry 04/11/20 04/11/20 04/11/20 07:30 07:31 07:36 Temperature Pulse Rate 90 92 H 80 Respiratory Rate Blood Pressure 145/76 O2 Sat by Pulse 100 99 Oximetry 04/11/20 04/11/20 04/11/20 07:41 07:45 07:46 Temperature Pulse Rate 79 88 91 H Respiratory Rate Blood Pressure 136/69 O2 Sat by Pulse 98 100 Oximetry 04/11/20 07:51 Temperature Pulse Rate 81 Respiratory Rate Blood Pressure O2 Sat by Pulse 98 Oximetry - Exam Breasts: normal Cardiovascular: Regular rate, Normal S1 Lungs: Clear to auscultation, Normal air movement Abdomen: Present: normal appearance, soft, normal bowel sounds. Absent: distention, tenderness, guarding Vulva: both: normal Uterus: Present: normal, firm, fundal height below umbilicus. Absent: bogginess, tenderness FHR: category 1 Extremities: normal Deep Tendon Reflex Grade: Normal +2 - Labs Labs: Abnormal Labs 04/08/20 04/08/20 04/08/20 15:54 15:54 15:54 WBC RBC 3.14 L Hgb 5.6 L* Hct 19.1 L* MCV 61 L MCH 18 L MCHC 29 L RDW 20.3 H Plt Count Seg Neuts % (Manual) Lymphocytes % (Manual) Nucleated RBC % Seg Neutrophils # Man Lymphocytes # (Manual) Carbon Dioxide BUN Creatinine 0.5 L Calcium Lactate Dehydrogenase 433 H Total Protein Albumin Ur Specific [place] 1.002 L Urine Creatinine Ur Total Protein 24 Hr Urine Total Protein Crossmatch 04/08/20 04/08/20 04/09/20 15:54 18:26 07:08 WBC 11.1 H RBC 3.54 L Hgb 7.0 L Hct 23.5 L MCV 66 L MCH 20 L MCHC RDW 25.8 H Plt Count 127 L Seg Neuts % (Manual) 84.0 H Lymphocytes % (Manual) 7.0 L Nucleated RBC % 7.0 H Seg Neutrophils # Man 9.3 H Lymphocytes # (Manual) 0.8 L Carbon Dioxide BUN Creatinine Calcium Lactate Dehydrogenase Total Protein Albumin Ur Specific [place] Urine Creatinine 21.5 H Ur Total Protein 24 Hr Urine Total Protein 35 H Crossmatch See Detail 04/09/20 04/10/20 04/11/20 07:08 09:30 00:57 WBC 17.6 H RBC Hgb 7.9 L Hct 25.5 L MCV 68 L MCH 21 L MCHC RDW 28.4 H Plt Count Seg Neuts % (Manual) Lymphocytes % (Manual) Nucleated RBC % Seg Neutrophils # Man Lymphocytes # (Manual) Carbon Dioxide 18 L BUN 6 L Creatinine 0.5 L Calcium 8.1 L Lactate Dehydrogenase Total Protein 6.2 L Albumin 2.9 L Ur Specific [place] Urine Creatinine 77.7 H Ur Total Protein 24 Hr 1187.50 H Urine Total Protein 95 H Crossmatch 04/11/20 04/11/20 06:29 06:29 WBC 16.0 H RBC 3.31 L Hgb 6.9 L Hct 22.4 L MCV 68 L MCH 21 L MCHC RDW 28.9 H Plt Count 134 L Seg Neuts % (Manual) Lymphocytes % (Manual) Nucleated RBC % Seg Neutrophils # Man Lymphocytes # (Manual) Carbon Dioxide 18 L BUN 6 L Creatinine 0.5 L Calcium 8.3 L Lactate Dehydrogenase Total Protein 5.8 L Albumin 2.8 L Ur Specific [place] Urine Creatinine Ur Total Protein 24 Hr Urine Total Protein Crossmatch Laboratory Results - last 24 hr 04/08/20 04/10/20 04/11/20 18:26 09:30 00:57 WBC 17.6 H RBC 3.74 Hgb 7.9 L Hct 25.5 L MCV 68 L MCH 21 L MCHC 31 RDW 28.4 H Plt Count 152 Sodium Potassium Chloride Carbon Dioxide Anion Gap BUN Creatinine Estimated GFR BUN/Creatinine Ratio Glucose Calcium Total Bilirubin AST ALT Alkaline Phosphatase Total Protein Albumin Albumin/Globulin Ratio Urine Total Volume 1250 Urine Creatinine 77.7 H Ur Creatinine 24 Hour 1.0 Ur Total Protein 24 Hr 1187.50 H Urine Urea Nitrogen 316 Ur Urea Nitrogen 24 Hr 3.95 Urine Total Protein 95 H Blood Type A POSITIVE Antibody Screen Negative Crossmatch See Detail 04/11/20 04/11/20 06:29 06:29 WBC 16.0 H RBC 3.31 L Hgb 6.9 L Hct 22.4 L MCV 68 L MCH 21 L MCHC 31 RDW 28.9 H Plt Count 134 L Sodium 137 Potassium 3.8 Chloride 106.8 Carbon Dioxide 18 L Anion Gap 16 BUN 6 L Creatinine 0.5 L Estimated GFR > 60 BUN/Creatinine Ratio 12 Glucose 92 Calcium 8.3 L Total Bilirubin 0.30 AST 23 ALT 16 Alkaline Phosphatase 93 Total Protein 5.8 L Albumin 2.8 L Albumin/Globulin Ratio 0.9 Urine Total Volume Urine Creatinine Ur Creatinine 24 Hour Ur Total Protein 24 Hr Urine Urea Nitrogen Ur Urea Nitrogen 24 Hr Urine Total Protein Blood Type Antibody Screen Crossmatch
[2020-04-11] MEDS: PRENATAL VIT27-FE FUMARATE-FOLIC ACID VIT TAB PO SCH (10:16)
--- NOTE | 2020-04-11 10:56 | Ultrasound Report ---
ULTRASOUND BIOPHYSICAL PROFILE ULTRASOUND BIOPHYSICAL PROFILE EA ADD EXAM ULTRASOUND OB LIMITED INDICATION: well being TECHNIQUE: Transabdominal ultrasound imaging. COMPARISON: 04/08/2020 FINDINGS: TWIN A breathing movement = 2 Gross body movement = 2 tone = 2 Qualitative amniotic fluid volume = 2 Total biophysical score = 8/8 Amniotic fluid: Within normal limits. Largest vertical pocket measures 3.6 cm. Presentation is transverse with head to maternal right. heart rate is 141 beats per minute. TWIN B breathing movement = 2 Gross body movement = 2 tone = 2 Qualitative amniotic fluid volume = 2 Total biophysical score = 8/8 Amniotic fluid: Within normal limits. Largest vertical pocket measures 6.1 cm. Presentation is transverse with head to maternal right. heart rate is 151 beats per minute. IMPRESSION: Viable twin gestation as outlined above. No acute abnormality is detected. Signer Name: Chin Chowdary Jr, MD Signed: 04/11/2020 10:51 AM Workstation Name: [id number]
--- NOTE | 2020-04-11 10:57 | Ultrasound Report ---
ULTRASOUND OB VELOCIMETRY UMBILICAL ARTERY HISTORY: Cord flow study TECHNIQUE: Transabdominal ultrasound with color and spectral Doppler imaging COMPARISON: None FINDINGS: TWIN A 3 segments of the umbilical cord were evaluated. heart rate measures 140 bpm. The spectral wave forms are normal and persistent. Average S/D ratio measures: 5.56 Average resistive index measures: 0.82 Signer Name: Chin Chowdary Jr, MD Signed: 04/11/2020 10:53 AM Workstation Name: [id number]
--- NOTE | 2020-04-11 10:58 | Ultrasound Report ---
ULTRASOUND OB VELOCIMETRY UMBILICAL ARTERY HISTORY: well being TECHNIQUE: Transabdominal ultrasound with color and spectral Doppler imaging COMPARISON: None FINDINGS: TWIN B 3 segments of the umbilical cord were evaluated. heart rate measures 140 bpm. The spectral wave forms are normal and persistent. Average S/D ratio measures: 3.49 Average resistive index measures: 0.71 Signer Name: Chin Chowdary Jr, MD Signed: 04/11/2020 10:53 AM Workstation Name: [id number]
[2020-04-11 11:41] LABS: Hematocrit 25.9 % (30.3-42.9); Hemoglobin 7.8 gm/dl (10.1-14.3); Mean Corpuscular HGB Conc 30 % (30-34); Platelet Count 153 K/mm3 (140-440)
[2020-04-11 11:43] LABS: Mean Corpuscular Volume 68 fl (79-97); Red Cell Distribution Width 28.8 % (13.2-15.2)
--- NOTE | 2020-04-11 14:38 | Consultation ---
History of Present Illness - Reason for Consult Consult date: 04/11/20 Leucocytosis Requesting physician: ANALY AGUILAR - History of Present Illness The patient is a 34-year-old female with twin gestation was admitted to the hospital on 04/08/2020 with complaints of facial swelling and concerns for preeclampsia. She was also noted to be severely anemic requiring blood transfusion. She was also given steroids. ID has been consulted for leukocytosis. Patient has been afebrile since admission. She has no symptoms at this time. No cough, no nausea, vomiting. No urinary burning. Eating and drinking well. She wants to go home. Review of Systems: General: no fevers,chills or rigors HEENT: no new visual disturbance Respiratory: No cough, sputum, hemoptysis or shortness of breath Cardiovascular: No chest pain, syncope Gastrointestinal: No nausea, vomiting or diarrhea Genitourinary: No dysuria or hematuria Musculoskeletal: No new or worsening neck pain or back pain Neurologic: No headaches, seizures Hematologic: No easy bruising or bleeding Endocrine: No night sweats or acute weight loss Skin: negative for rash, jaundice Psychiatric: No suicidal or homicidal ideation Past History Social history: Medications and Allergies Allergies Allergy/AdvReac Type Severity Reaction Status Date / Time No Known Allergies Allergy Verified 04/08/20 14:57 Home Medications Medication Instructions Recorded Confirmed Last Taken Type Ferrous Sulfate [Ferrous Sulfate 300 mg PO BID #60 ml 11/07/14 04/08/20 Unknown Rx Oral Liq 300 Mg/5 Ml] Active Meds: Active Medications Docusate Sodium (Colace) 100 mg PO Q12H PRN PRN Reason: Constipation Ferrous Sulfate (Ferrous Sulfate) 308 mg PO QDAY [facility] Last Admin: 04/10/20 09:50 Dose: 308 mg Documented by: Hydralazine HCl (Apresoline) 5 mg IV Q30MIN PRN PRN Reason: Hypertension Last Admin: 04/10/20 17:45 Dose: 5 mg Documented by: Sodium Chloride (Nacl 0.9% 500 Ml) 500 mls @ 0 mls/hr IV ONCE LEON Last Admin: 04/10/20 18:15 Dose: 50 mls/hr Documented by: Lactated Ringer's (Lactated Ringers) 1,000 mls @ 125 mls/hr IV DIRECT LEON Labetalol HCl (Labetalol) 200 mg PO BID [facility] Last Admin: 04/11/20 10:13 Dose: 200 mg Documented by: Labetalol HCl (Labetalol) 100 mg PO BID [facility] Last Admin: 04/11/20 10:15 Dose: 100 mg Documented by: Multivitamins/Iron/Calcium ( Vitamin) 1 each PO QDAY [facility] Last Admin: 04/11/20 10:16 Dose: 1 each Documented by: Physical Examination - Physical Exam Narrative exam: Physical Exam: Constitutional: Alert, cooperative. No acute distress Head, Ears, Nose: Normocephalic, atraumatic. External ears, nose normal Eyes: Conjunctivae/corneas clear. No icterus. No ptosis. Neck: Supple, no meningeal signs Oral: dentition fair, no thrush Cardiovascular: S1, S2 normal. Respiratory: Good air entry, clear to auscultation bilaterally GI: Soft, non-tender; bowel sounds normal. No peritoneal signs Musculoskeletal: No pedal edema, no cyanosis. Skin: No rash or abscess Hem/Lymphatic: No palpable cervical or supraclavicular nodes. No lymphangitis Psych: Mood ok. Affect normal Neurological: Awake, alert, oriented. No gross abnormality - Constitutional Vitals: Vital Signs Temp Pulse Resp BP Pulse Ox 98.8 F 83 19 140/78 0 L 04/11/20 14:22 04/11/20 14:21 04/10/20 21:00 04/11/20 14:22 04/11/20 14:18 Temperature -Last 24 Hours Temperature 98.8 F Temperature 98.5 F Temperature 98.6 F Temperature 99.1 F Temperature 98.5 F Temperature 98.8 F Temperature 98.3 F Temperature 98.3 F Temperature 98.1 F Temperature 99.1 F Temperature 98.3 F Results - Labs CBC & Chem 7: 04/11/20 11:27 04/11/20 06:29 Labs: Abnormal lab results 04/08/20 04/11/20 04/11/20 Range/Units 18:26 00:57 06:29 WBC 17.6 H 16.0 H (4.5-11.0) K/mm3 RBC 3.31 L (3.65-5.03) M/mm3 Hgb 7.9 L 6.9 L (10.1-14.3) gm/dl Hct 25.5 L 22.4 L (30.3-42.9) % MCV 68 L 68 L (79-97) fl MCH 21 L 21 L (28-32) pg RDW 28.4 H 28.9 H (13.2-15.2) % Plt Count 134 L (140-440) K/mm3 Carbon Dioxide (22-30) mmol/L BUN (7-17) mg/dL Creatinine (0.7-1.2) mg/dL Calcium (8.4-10.2) mg/dL Total Protein (6.3-8.2) g/dL Albumin (3.9-5) g/dL Crossmatch See Detail 04/11/20 04/11/20 Range/Units 06:29 11:27 WBC 15.4 H (4.5-11.0) K/mm3 RBC (3.65-5.03) M/mm3 Hgb 7.8 L (10.1-14.3) gm/dl Hct 25.9 L (30.3-42.9) % MCV 68 L (79-97) fl MCH 21 L (28-32) pg RDW 28.8 H (13.2-15.2) % Plt Count (140-440) K/mm3 Carbon Dioxide 18 L (22-30) mmol/L BUN 6 L (7-17) mg/dL Creatinine 0.5 L (0.7-1.2) mg/dL Calcium 8.3 L (8.4-10.2) mg/dL Total Protein 5.8 L (6.3-8.2) g/dL Albumin 2.8 L (3.9-5) g/dL Crossmatch Assessment and Plan Cultures: None this admission A/P: 34-year-old female with twin gestation was admitted to the hospital on 04/08/2020 with complaints of facial swelling and concerns for preeclampsia: #Leukocytosis: Can be reactive from severe anemia on admission. Now also likely secondary to steroids. Patient without any fever. No cough or shortness of breath. No urinary burning. #Anemia: s/p blood transfusion. Recs: WBC elevation likely reaction from anemia and/or steroid use No concern for infectious process at this time ID will sign off at this time, please call back with questions or new concerns. Jovanni Keen MD, FACP [facility] ([facility] C: [phone] O: [phone] F: [phone]
[2020-04-11 14:40] VITALS: BP 140/78
[2020-04-11 15:25] LABS: Band Neutrophils # (Manual) 0.2 K/mm3; Basophils % (Manual) 0 % (0.0-1.8); Eosinophils % (Manual) 0 % (0.0-4.3); Total Cells Counted 100
[2020-04-11 15:26] LABS: Anisocytosis 2+; Macrocytosis 1+; Tear Drop Cells Few
[2020-04-11 15:27] LABS: Large Platelets 1+; Ovalocytes Few; Platelet Estimate Consistent w Auto
== END 2020-04-11 17:34 | disposition left against medical advice (07) | DRG 781 ==
LOC: TRG 14:38 → APU 14:39 → UNDOADMOB 14:39 → OBSVTOIN 14:39 → INTOOBSV 14:39 → LD 14:39 → TRG 16:26 → LD 04-10 15:05 → OBSVTOIN 04-10 15:05
PROVIDERS: ADMIT Obstetrics & Gynecology; ATTEND Obstetrics & Gynecology
PROC: 30233N1 Transfusion of Nonautologous Red Blood Cells into Peripheral Vein, Percutaneous Approach (ICD-10-PCS; principal; 2020-04-08)
DX: O14.93 Unspecified pre-eclampsia, third trimester (principal); O99.113 Other diseases of the blood and blood-forming organs and certain disorders involving the immune mechanism complicating pregnancy, third trimester; O99.013 Anemia complicating pregnancy, third trimester; O99.213 Obesity complicating pregnancy, third trimester; E66.01 Morbid (severe) obesity due to excess calories; D69.6 Thrombocytopenia, unspecified; D62 Acute posthemorrhagic anemia; O30.043 Twin pregnancy, dichorionic/diamniotic, third trimester; Z3A.29 29 weeks gestation of pregnancy; O36.5931 Maternal care for other known or suspected poor fetal growth, third trimester, fetus 1
CPT/HCPCS: 36415; 76815; 76819; 76820; 80053; 81001; 82565; 82570; 82731; 83615; 84156; 84450; 84460; 84540; 84550; 85007; 85025; 85027; 86850; 86900; 86901; 86920; G0378; J0360; J0702; J1200; J3105; J7040; J7120; P9016

== ENCOUNTER 2020-05-18 15:04 | Inpatient (IN) | payer MEDICAID ==
[2020-05-18] MEDS ORDERED: METOCLOPRAMIDE 10 MG/2 ML INJ IV ONE (17:33)
[2020-05-18] MEDS ORDERED: FAMOTIDINE 20 MG/2 ML INJ IV ONE (17:33)
[2020-05-18] MEDS ORDERED: BICITRA ORAL LIQD 30ML PO ONE (17:33)
--- NOTE | 2020-05-18 17:41 | History and Physical Report ---
History of Present Illness Date of examination: 05/18/20 Date of admission: 05/18/20 16:01 Chief complaint: Intrauterine growth restriction History of present illness: 34-year-old -0-1-4 at 38+6 weeks who presents for a repeat delivery secondary to twin-twin gestation complicated by intrauterine growth restriction. The patient initiated care in the first trimester. Her course is complicated by advanced maternal age, twin gestation, history of hemorrhage, intrauterine growth restriction, previous delivery, and severe anemia. The patient was evaluated today by maternal- medicine and per their recommendation that the patient be delivered secondary to growth restriction involving both fetuses. The patient denies contractions, leakage of fluid or vaginal bleeding. She has elected to undergo permanent sterilization. 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; anemia) Past Surgical History: section Social history: single - Obstetrical History Expected Date of Delivery: 06/23/20 Actual Gestation: 34 Week(s) 6 Day(s) : 5 Para: 3 Hx # Term Pregnancies: 3 Number of Pregnancies: 0 Spontaneous Abortions: 0 Induced : 1 Number of Living Children: 4 Medications and Allergies Allergies Allergy/AdvReac Type Severity Reaction Status Date / Time No Known Allergies Allergy Verified 04/08/20 14:57 Home Medications Medication Instructions Recorded Confirmed Last Taken Type Ferrous Sulfate [Ferrous Sulfate 300 mg PO BID #60 ml 11/07/14 04/08/20 Unknown Rx Oral Liq 300 Mg/5 Ml] Active Meds: Active Medications Citric Acid/Sodium Citrate (Bicitra) 30 ml PO ONCE ONE Stop: 05/18/20 17:34 Famotidine (Pepcid) 20 mg IV ONCE ONE Stop: 05/18/20 17:34 Oxytocin/Sodium Chloride (Pitocin/Ns 20 Unit/1000ml Drip) 20 units in 1,000 mls @ 0 mls/hr IV TITR LEON Lactated Ringer's (Lactated Ringers) 1,000 mls @ 2,250 mls/hr IV PREOP LEON Stop: 05/19/20 18:27 Cefazolin Sodium (Ancef/Sterile Water 2 Gm/20 Ml) 2 gm in 20 mls @ 80 mls/hr IV PREOP NR; Protocol Metoclopramide HCl (Reglan) 10 mg IV ONCE ONE Stop: 05/18/20 17:34 Review of Systems All systems: negative Ears, nose, mouth and throat: deferred Genitourinary: no leakage of fluid, no pelvic pain, no contractions - Vital Signs Vital signs: Vital Signs Pulse BP 108 H 163/96 05/18/20 16:03 05/18/20 16:03 Temp Pulse Resp BP Pulse Ox 108 H 163/96 05/18/20 16:03 05/18/20 16:03 - Physical Exam Breasts: Positive: deferred Cardiovascular: Regular rate Lungs: Positive: Clear to auscultation Results Result Diagrams: 05/18/20 17:30 All other labs normal. Assessment and Plan - Patient Problems (1) Anemia due to chronic blood loss Current Visit: No Status: Acute (2) Twin gestation in third trimester Current Visit: Yes Status: Acute Plan to address problem: will proceed with a repeat delivery and bilateral tubal ligation (3) Intrauterine growth restriction affecting care of mother Current Visit: Yes Status: Acute (4) Previous delivery affecting Current Visit: Yes Status: Acute
[2020-05-18 17:43] LABS: Hematocrit 31.1 % (30.3-42.9); Hemoglobin 9.6 gm/dl (10.1-14.3); Mean Corpuscular HGB Conc 31 % (30-34); Mean Corpuscular Volume 71 fl (79-97); Platelet Count 179 K/mm3 (140-440); Red Blood Count 4.36 M/mm3 (3.65-5.03)
[2020-05-18] MEDS ORDERED: ceFAZolin/Water 2 GM/20 ML 2 GM/20 ML SYRINGE IV NR (18:00)
[2020-05-18] MEDS ORDERED: OXYTOCIN 20 UNIT/1000ML DRIP 20 UNITS/1,000 ML BAG IV SCH ×2 (18:00→22:00)
--- NOTE | 2020-05-18 18:07 | Anesthesia Consultation ---
Anesthesia Consult and Med Hx Date of service: 05/18/20 - Airway Anesthetic Teeth Evaluation: Good ROM Head & Neck: Adequate Mental/Hyoid Distance: Adequate Mallampati Class: Class II Intubation Access Assessment: Probably Good - Pulmonary Exam CTA: Yes - Cardiac Exam Cardiac Exam: RRR - Pre-Operative Health Status ASA Pre-Surgery Classification: ASA3 Proposed Anesthetic Plan: Spinal - Pulmonary Hx Asthma: No - Cardiovascular System Hx Hypertension: Yes (Pre-e) - Central Nervous System Hx Seizures: No Hx Psychiatric Problems: No - Endocrine Hx Renal Disease: No Hx Hypothyroidism: No Hx Hyperthyroidism: No - Hematic Hx Anemia: Yes Hx Sickle Cell Disease: No
--- NOTE | 2020-05-18 18:08 | Anesthesia Day of Surgery ---
Anesthesia Day of Surgery - Day of Surgery Patient Examined: Yes Patient H&P Reviewed: Yes Patient is NPO: Yes (last ate 1330 ok for surgery 1929)
[2020-05-18 18:18] LABS: Red Cell Distribution Width 29.3 % (13.2-15.2)
[2020-05-18] MEDS: LACTATED RINGERS 1,000 ML IV SCH ×2 (19:08→19:09)
[2020-05-18 19:21] LABS: Anisocytosis 2+; Macrocytosis 1+; Ovalocytes Few; Tear Drop Cells Few; Total Cells Counted 100
[2020-05-18 19:22] LABS: Dimorphic RBC Yes; Large Platelets 1+; Schistocytes Few
[2020-05-18] MEDS ORDERED: ceFAZolin/STERILE WATER 2 GM/20 ML SYRINGE IV ONE (20:00)
[2020-05-18] MEDS ORDERED: WATER FOR IRRIG STERILE 1,500 ML BOTTLE IR ONE (20:00)
[2020-05-18] MEDS ORDERED: SODIUM CHLORIDE 0.9% IRR 1,500 ML BOTTLE IR ONE (20:00)
[2020-05-18] MEDS ORDERED: KETAMINE/STERILE WATER 50 MG/ML SYRINGE ONE (20:18)
[2020-05-18] MEDS ORDERED: ONDANSETRON 4 MG/2 ML INJ ONE (20:50)
[2020-05-18] MEDS ORDERED: DEXMEDETOMIDINE 200 MCG/2 ML VIAL IV ONE (20:50)
[2020-05-18] MEDS ORDERED: KETOROLAC 30 MG/1 ML INJ ONE (20:50)
[2020-05-18] MEDS ORDERED: propofoL 200 MG/20 ML VIAL IV ONE (20:51)
[2020-05-18] MEDS ORDERED: BUPIVACAINE /DEX-WATER 0.75% (2 ML) AMPULE INFILTRATI ONE (21:25)
[2020-05-18] MEDS ORDERED: BUPIVACAINE/PF (0.5%) 5 MG/1 ML 30 ML VIAL INFILTRATI ONE (21:25)
[2020-05-18] MEDS ORDERED: PHENYLEPHRINE 10 MG/1 ML INJ SDV ONE (21:25)
--- NOTE | 2020-05-18 21:29 | Procedure Note ---
OB Delivery Note - Delivery Date of Delivery: 05/18/20 Surgeon: BRENDA MARTÍNEZ Estimated blood loss: 1000cc - Section Preop diagnosis: repeat , desires sterilization Postop diagnosis: same section procedure: section, repeat low transverse, bilateral tubal ligation Disposition: PACU - A at 1 minute: 8 at 5 minutes: 9 Gender: Female (Weight 2 pounds 7 ounces) B at 1 minute: 8 at 5 minutes: 9 (Weight 3 pounds 8 ounces) Gender: Female (Weight 3 pounds 8 ounces)
[2020-05-18] MEDS ORDERED: MAGNESIUM SULFATE 4 GM/100 ML BAG IV ONE (21:37)
[2020-05-18] MEDS ORDERED: LANOLIN/ZINC/DIMETHICONE (LANSINOH) 7 GM TP PRN (21:37)
[2020-05-18] MEDS ORDERED: NALOXONE 0.4 MG/1 ML INJ IV PRN (21:37)
[2020-05-18] MEDS ORDERED: WITCH HAZEL/ GLYCERIN PAD TP PRN (21:37)
[2020-05-18] MEDS ORDERED: ONDANSETRON 4 MG/2 ML INJ IV PRN (21:37)
--- NOTE | 2020-05-18 21:37 | Operative Report ---
Operative Report Operative Report: Date of surgery: May 18, 2020 Preoperative diagnosis: at 34+6 weeks; twin gestation; previous cesa rean delivery; intrauterine growth restriction; undesired fertility; severe preeclampsia Postoperative diagnosis: Same as above Procedure: Repeat low transverse delivery and bilateral tubal ligation via [place] method; extensive of lysis of adhesions Surgeon: Ave Burrell M.D. Anesthesia: Regional Estimated blood loss: 1000 mL Urine output: 700 mL IV fluids: 2 L Findings: Liveborn twin gestation twin A female with Apgars of 8 and 9 weight 2 pounds 7 ounces twin B female weight 3 pounds 8 ounces Apgars of 8 and 9 Indications: 34-year-old at 34+6 weeks who was being delivered for intrauterine growth restriction and preeclampsia. Procedure: The patient was taken to the operating room and given regional anesthesia without complication. She was prepped and draped in a normal sterile fashion. A Pfannenstiel skin incision was made down to layer the fascia which was nicked in the midline extended laterally with the Bovie cautery. The superior aspect of the rectus fascia was grasped with [place] clamps x2 and the rectus muscles off sharply. This was done in inferior fashion as well. The rectus muscle midline and peritoneum entered bluntly. The rectus muscle was densely adherent to the rectus fascia. Extensive lysis of adhesions had to be performed. The anterior fundal aspect of the uterus was adherent to the anterior abdominal wall. Additional lysis of adhesions had to be performed in order to release the uterus from the anterior abdominal wall. An Mario retractor was then inserted. A bladder blade was placed. The vesicouterine peritoneum was then entered sharply with Metzenbaum scissors. A bladder flap was created digitally. A low transverse uterine incision was then made and extended digitally. There was clear fluid upon entry into the uterine cavity. The feet of twin B were grasped and the infant was delivered easily through the incision with fundal pressure. The cord was clamped and cut x2 and was passed off to pediatrics. Amniotomy was performed twin B with evidence of clear fluid. Twin B was in vertex presentation and delivered with fundal pressure. The cord was clamped and cut x2 and the was passed off to pediatrics in attendance. The placenta was then manually extracted. The uterus was then exteriorized and cleared of clots and debris. There were multiple serosal defects that were evident secondary to the prior adhesions. Multiple lsycfd-qk-[id number] stitches had to be placed for hemostasis. The uterine incision was then closed in a running locked fashion with 0 Vicryl additional imbricating stitch was applied for 2 layer closure. Attention was then turned to the patient's tube with the ampullary portion of the tube was isolated with a Tyron. The mesosalpinx was transected with the Bovie cautery creating a window. The distal and proximal area of the ampullary tube were ligated x2 with 0 plain gut suture. A 1 cm portion of tube was excised. This was done on the contralateral side as well. The posterior cul-de-sac was then copiously irrigated. The uterus was replaced back into the abdomen and pelvis were the gutters were then irrigated. Hemo-blast was applied to the serosal surface of the uterus for hemostasis. The Mario retractor was then removed. Experienced difficulty maintaining hemostasis and subcutaneous adipose tissue. Wahmni-vx-kaqwj stitches with 3-0 Vicryl had to be applied for hemostasis and Surgicel was also placed. The fascia was then closed with 0 Vicryl in a running fashion. The skin was then reapproximated with 3-0 Monocryl on a Dragan needle subcuticular fashion. Steri-Strips to place across the incision and a Crede procedures performed at the end of the surgery. A pressure dressing was applied to the incision. The surgery productive of a liveborn female twin A had Apgars of 8 and 9 weight 2 pounds 7 ounces twin B was a female with Apgars of 8 and 9 weight 3 pounds 8 ounces. The patient was taken to the recovery room in stable condition. All sponge laps and needle counts correct x2.
[2020-05-18] MEDS ORDERED: MAGNESIUM SULFATE 40GM/1000ML 40 GM/1,000 ML BAG IV SCH (22:00)
--- NOTE | 2020-05-18 22:13 | Post Anesthesia Evaluation ---
- Post Anesthesia Evaluation Patient Participated: Yes Airway Patent: Yes Stable Respiratory Function: Yes Nausea/Vomiting: No Temp > 96.8F: Yes Pain Manageable: Yes Adequeate Hydration: Yes Anesthesia Complications: No Block Receding Appropriately: Yes
[2020-05-19] MEDS: KETOROLAC 30 MG/1 ML INJ IV PRN ×3 (00:47→20:34)
[2020-05-19] MEDS: LACTATED RINGERS 1,000 ML IV SCH ×2 (04:00→17:41)
[2020-05-19] MEDS: MORPHINE 4 MG/1 ML INJ IV PRN ×2 (04:03→11:39)
--- NOTE | 2020-05-19 08:15 | Progress Note ---
Assessment and Plan A: POD#1 s/p repeat section at 34 wks with twin , IUGR, Severe Preeclamspsia on magnesium sulfate for seizure prophylaxis Obesity Acute on chronic blood loss anemia P: Continue magnesium sulfate for 24 hours Monitor blood pressure curve Continue to monitor for symptomatic anemia Subjective - Subjective Date of service: 05/19/20 Principal diagnosis: s/p repeat , BTL, ANTHONY, Severe Preeclampsia s/p magnesium sulfate Interval history: Pt doing well. No complaints. Patient reports: appetite normal, pain well controlled, no voiding normally (f oley in place ), no flatus, no bowel movement, no ambulating normally (SCDs in place ) : in NICU Objective - Vital Signs Latest vital signs: Vital Signs Temp Pulse Resp BP BP Pulse Ox 05/19/20 08:12 18 05/19/20 08:11 80 100 05/19/20 08:06 78 105/59 99 05/19/20 08:01 88 96 05/19/20 07:56 83 100 05/19/20 07:51 86 99 05/19/20 07:46 80 99 05/19/20 07:41 79 100 05/19/20 07:36 82 100 05/19/20 07:31 83 99 05/19/20 07:26 82 99 05/19/20 07:21 81 100 05/19/20 07:16 81 99 05/19/20 07:11 82 100 05/19/20 07:06 86 99/55 99 05/19/20 07:01 89 100 05/19/20 06:56 81 100 05/19/20 06:51 83 99 05/19/20 06:46 84 99 05/19/20 06:41 84 99 05/19/20 06:36 81 99 05/19/20 06:31 84 100 05/19/20 06:26 79 100 05/19/20 06:21 84 100 05/19/20 06:16 86 100 05/19/20 06:11 86 100 05/19/20 06:06 76 102/56 100 05/19/20 06:01 83 99 05/19/20 05:56 84 99 05/19/20 05:51 83 98 05/19/20 05:46 88 99 05/19/20 05:41 82 98 05/19/20 05:36 89 99 05/19/20 05:31 93 H 99 05/19/20 05:26 82 99 05/19/20 05:21 83 99 05/19/20 05:16 83 99 05/19/20 05:11 78 98 05/19/20 05:06 79 114/75 99 05/19/20 05:01 81 99 05/19/20 04:56 80 99 05/19/20 04:51 85 99 05/19/20 04:46 80 99 05/19/20 04:41 79 99 05/19/20 04:36 75 100 05/19/20 04:31 77 100 05/19/20 04:26 76 100 05/19/20 04:21 82 99 05/19/20 04:16 81 99 05/19/20 04:11 83 98 05/19/20 04:06 84 120/72 99 05/19/20 04:01 96 H 99 05/19/20 04:00 98.2 F 05/19/20 03:56 85 99 05/19/20 03:51 85 99 05/19/20 03:46 83 99 05/19/20 03:41 86 98 05/19/20 03:36 84 98 05/19/20 03:31 83 98 05/19/20 03:26 80 99 05/19/20 03:21 78 98 05/19/20 03:16 80 99 05/19/20 03:11 78 99 05/19/20 03:06 78 115/68 99 05/19/20 03:01 81 99 05/19/20 02:56 79 100 05/19/20 02:51 79 99 05/19/20 02:46 77 98 05/19/20 02:41 74 99 05/19/20 02:36 74 100 05/19/20 02:31 77 99 05/19/20 02:26 74 100 05/19/20 02:21 91 H 99 05/19/20 02:16 77 99 05/19/20 02:11 88 99 05/19/20 02:06 91 H 99 05/19/20 02:01 86 98 05/19/20 01:58 88 124/61 05/19/20 01:56 84 98 05/19/20 01:51 83 99 05/19/20 01:46 83 99 05/19/20 01:43 83 124/59 05/19/20 01:41 83 97 05/19/20 01:36 80 99 05/19/20 01:31 79 98 05/19/20 01:28 81 121/57 05/19/20 01:26 78 98 05/19/20 01:21 79 100 05/19/20 01:16 79 100 05/19/20 01:13 77 122/58 05/19/20 01:11 76 100 05/19/20 01:06 79 100 05/19/20 01:01 81 100 05/19/20 00:58 78 121/58 05/19/20 00:56 78 99 05/19/20 00:51 77 100 05/19/20 00:47 18 05/19/20 00:46 80 100 05/19/20 00:44 81 135/63 05/19/20 00:41 80 100 05/19/20 00:36 79 100 05/19/20 00:31 89 99 05/19/20 00:28 94 H 105/61 05/19/20 00:26 83 99 05/19/20 00:23 85 106/60 05/19/20 00:21 90 99 05/19/20 00:18 82 108/63 05/19/20 00:16 84 99 05/19/20 00:13 84 106/63 05/19/20 00:11 86 100 05/19/20 00:08 83 114/65 05/19/20 00:06 77 100 05/18/20 23:54 80 112/67 05/18/20 23:50 98.5 F 8 L 18 112/67 100 05/18/20 22:40 98.5 F 79 17 81/43 100 05/18/20 22:25 78 17 86/47 100 05/18/20 22:10 92 H 18 109/49 100 05/18/20 21:55 90 20 131/90 100 05/18/20 21:50 100 H 20 122/80 100 05/18/20 21:45 100 H 16 100 05/18/20 21:40 98.2 F 105 H 14 132/85 100 05/18/20 19:18 100 H 156/89 05/18/20 17:00 98.3 F 05/18/20 16:03 108 H 163/96 Intake and Output 07/09/20 07/10/20 07/10/20 22:59 06:59 14:59 Intake Total 2037.5 300 Output Total 995 650 Balance 1042.5 -350 Intake: IV 2037.5 300 Lactated Ringers 1,000 ml 37.5 @ 2250 mls/hr IV PREOP [facility] Rx#:[id number] Output: Urine 995 650 Indwelling Catheter 500 Uretheral (Lorenzo) 295 Other: Total, Output Amount 100 Weight 89.811 kg Estimated Blood Loss 700 - Exam Breasts: Present: deferred Abdomen: Present: soft, distention (moderate) Uterus: Present: fundal height at umbilicus Extremities: Present: edema (trace) Incision: Present: dressed - Labs Labs: Abnormal lab results 05/18/20 Range/Units 17:30 WBC 11.7 H (4.5-11.0) K/mm3 Hgb 9.6 L (10.1-14.3) gm/dl MCV 71 L (79-97) fl MCH 22 L (28-32) pg RDW 29.3 H (13.2-15.2) % Seg Neuts % (Manual) 77.0 H (40.0-70.0) % Lymphocytes % (Manual) 10.0 L (13.4-35.0) % Monocytes % (Manual) 10.0 H (0.0-7.3) % Seg Neutrophils # Man 9.0 H (1.8-7.7) K/mm3 Monocytes # (Manual) 1.2 H (0.0-0.8) K/mm3
[2020-05-19 09:08] LABS: Hematocrit 22.9 % (30.3-42.9)
[2020-05-20] MEDS: oxyCODONE /ACETAMINOPHEN 5-325MG TAB PO PRN ×4 (03:07→22:36)
[2020-05-20] MEDS: IBUPROFEN 800 MG TAB PO PRN ×3 (08:16→23:49)
--- NOTE | 2020-05-20 10:57 | Progress Note ---
Assessment and Plan A: POD2 s/p LTCS Preeclampsia with severe features s/p mag sulfate Abdominal distention, passing flatus Acute on chronic anemia due to and blood loss Vital signs stable P: Initiate bowel regimen Ferrous sulfate supplementation Anticipate d/c to home on POD3 Subjective - Subjective Date of service: 05/20/20 Principal diagnosis: s/p LTCS, preeclampsia s/p mag sulfate, twins Interval history: POD2 s/p repeat LTCS, preeclampsia s/p mag sulfate x24 hours pp Patient reports: appetite normal, voiding normally, pain well controlled, flatus, ambulating normally [place]: doing well, in NICU Objective - Vital Signs Latest vital signs: Vital Signs Temp Pulse Resp BP BP Pulse Ox 05/20/20 08:38 98.0 F 89 20 118/80 98 05/20/20 06:13 97.8 F 84 20 115/70 96 05/20/20 00:00 98.1 F 87 20 129/78 100 05/19/20 21:47 107 H 97 05/19/20 21:42 98 H 97 05/19/20 21:38 97 H 93 05/19/20 21:37 94 H 98 05/19/20 21:32 85 98 05/19/20 21:27 88 98 05/19/20 21:22 85 98 05/19/20 21:17 86 98 05/19/20 21:12 83 98 05/19/20 21:07 87 98 05/19/20 21:06 85 113/65 05/19/20 21:02 86 98 05/19/20 20:57 86 98 05/19/20 20:52 84 98 05/19/20 20:47 84 98 05/19/20 20:42 86 100 05/19/20 20:37 84 100 05/19/20 20:34 18 05/19/20 20:32 87 100 05/19/20 20:27 89 96 05/19/20 20:22 89 97 05/19/20 20:17 87 98 05/19/20 20:12 84 99 05/19/20 20:07 83 99 05/19/20 20:06 83 106/63 05/19/20 20:02 84 100 05/19/20 19:57 61 L 05/19/20 19:56 96 H 83 L 07/10/20 19:51 96 H 98 05/19/20 19:46 90 99 0720 19:41 91 H 98 20 19:36 91 H 99 20 19:31 98 H 98 05/19/20 19:26 84 98 20 19:21 92 H 98 05/19/20 19:16 90 98 05/19/20 19:11 85 99 05/19/20 19:06 85 121/69 100 05/19/20 19:01 98 H 100 05/19/20 18:56 88 99 05/19/20 18:51 92 H 99 05/19/20 18:46 105 H 99 05/19/20 18:41 102 H 100 05/19/20 18:36 83 100 05/19/20 18:31 83 98 05/19/20 18:26 79 99 05/19/20 18:21 84 97 05/19/20 18:16 84 98 05/19/20 18:11 80 98 05/19/20 18:06 81 109/65 98 05/19/20 18:01 84 96 05/19/20 17:56 81 98 05/19/20 17:51 89 99 05/19/20 17:46 83 98 05/19/20 17:41 79 98 05/19/20 17:36 79 99 05/19/20 17:31 83 100 05/19/20 17:26 90 100 05/19/20 17:21 82 98 05/19/20 17:16 85 100 05/19/20 17:11 94 H 99 05/19/20 17:06 85 121/71 98 05/19/20 17:01 80 98 05/19/20 16:56 84 98 05/19/20 16:51 82 99 20 16:46 90 99 20 16:41 83 99 05/19/20 16:36 86 99 20 16:31 84 99 20 16:26 78 98 0720 16:21 81 99 20 16:19 98.3 F 76 18 128/78 99 0720 16:16 81 99 07 16:11 81 99 07 16:06 77 128/78 100 07/10/20 16:01 79 99 0720 15:56 75 100 05/19/20 15:51 79 99 05/19/20 15:46 81 99 05/19/20 15:41 84 99 05/19/20 15:36 79 99 05/19/20 15:31 79 99 05/19/20 15:26 85 99 05/19/20 15:21 84 99 05/19/20 15:16 89 99 05/19/20 15:11 80 99 05/19/20 15:06 78 106/56 98 05/19/20 15:01 84 98 05/19/20 14:56 79 98 05/19/20 14:51 80 98 05/19/20 14:46 82 99 05/19/20 14:41 79 97 05/19/20 14:36 76 99 05/19/20 14:31 85 98 05/19/20 14:26 88 98 05/19/20 14:21 83 99 05/19/20 14:16 85 99 05/19/20 14:11 83 98 05/19/20 14:06 80 115/69 99 05/19/20 14:01 88 99 05/19/20 13:56 87 99 05/19/20 13:51 81 99 05/19/20 13:46 81 99 05/19/20 13:41 87 99 05/19/20 13:36 81 99 05/19/20 13:31 79 99 05/19/20 13:26 88 99 05/19/20 13:21 78 98 05/19/20 13:16 84 98 05/19/20 13:11 83 99 05/19/20 13:06 88 124/73 99 05/19/20 13:01 77 98 05/19/20 12:56 82 99 05/19/20 12:51 80 98 05/19/20 12:46 81 99 05/19/20 12:41 78 98 05/19/20 12:36 79 98 05/19/20 12:31 80 98 05/19/20 12:26 82 98 05/19/20 12:23 74 94 05/19/20 12:21 87 99 05/19/20 12:16 88 100 05/19/20 12:11 78 99 05/19/20 12:06 97.7 F 83 18 132/93 132/93 100 0720 12:01 88 100 05/19/20 11:56 81 99 05/19/20 11:51 84 99 05/19/20 11:46 87 99 05/19/20 11:41 77 99 05/19/20 11:36 77 99 05/19/20 11:31 78 99 05/19/20 11:26 75 99 05/19/20 11:21 72 99 05/19/20 11:16 75 99 05/19/20 11:11 73 100 05/19/20 11:06 74 114/69 98 05/19/20 11:01 73 99 05/19/20 10:56 82 99 Intake and Output 05/19/20 05/20/20 05/20/20 23:59 07:59 15:59 Intake Total 2000 240 Output Total 661 500 Balance 1339 -260 Intake: IV 2000 Lactated Ringers 1,000 ml 2000 @ 75 mls/hr IV [facility] Rx#:[id number] Oral 240 Output: Urine 660 500 Indwelling Catheter 660 Void 500 Pad Count 1 Other: Total, Intake Amount 240 Total, Output Amount 275 500 # Voids Void 1 1 1 - Exam Lungs: Present: Normal air movement Abdomen: Present: distention. Absent: tenderness Uterus: Present: firm, fundal height below umbilicus Extremities: Present: normal Incision: Present: dressed - Labs Labs: Abnormal lab results 05/19/20 05/19/20 Range/Units 12:33 17:45 Magnesium 5.50 H 5.30 H (1.7-2.3) mg/dL
[2020-05-20] MEDS: MAGNESIUM HYDROXIDE (MOM) ORAL LIQD UDC PO SCH ×2 (13:06→23:49)
[2020-05-20] MEDS: FERROUS SULFATE 325 MG TAB PO SCH ×2 (13:06→22:37)
[2020-05-21] MEDS: oxyCODONE /ACETAMINOPHEN 5-325MG TAB PO PRN ×3 (06:12→14:06)
[2020-05-21] MEDS: MAGNESIUM HYDROXIDE (MOM) ORAL LIQD UDC PO SCH (06:15)
[2020-05-21] MEDS: FERROUS SULFATE 325 MG TAB PO SCH (10:15)
--- NOTE | 2020-05-21 10:38 | Progress Note ---
Assessment and Plan A: POD3 s/p LTCS Preeclampsia with severe features s/p mag sulfate Acute on chronic anemia due to and blood loss Vital signs stable P: Ferrous sulfate supplementation Discharge to home today Subjective - Subjective Date of service: 05/21/20 Principal diagnosis: s/p repeat , BTL, ANTHONY, Severe Preeclampsia s/p magnesium sulfate Interval history: POD3 s/p repeat LTCS, preeclampsia s/p mag sulfate x24 hours pp Patient reports: appetite normal, voiding normally, pain well controlled, flatus, ambulating normally [place]: doing well, in NICU Objective - Vital Signs Latest vital signs: Vital Signs Temp Pulse Resp BP BP Pulse Ox 05/21/20 09:08 98.2 F 87 20 128/84 99 05/21/20 05:15 78 20 110/79 100 05/21/20 00:51 97.9 F 80 20 121/77 98 05/20/20 20:58 98.1 F 88 20 123/81 99 05/20/20 15:12 98.1 F 87 16 138/84 97 05/20/20 12:43 98.9 F 120 H 20 128/84 98 Intake and Output 05/20/20 05/21/20 05/21/20 23:59 07:59 15:59 Intake Total 360 360 240 Balance 360 360 240 Intake: Oral 360 360 240 Other: Total, Intake Amount 120 120 240 # Voids Void 1 1 1 # Bowel Movements 1 - Exam Lungs: Present: Normal air movement Abdomen: Present: soft. Absent: distention Uterus: Present: firm, fundal height below umbilicus. Absent: bogginess Extremities: Present: normal Incision: Present: normal, dry, intact
--- NOTE | 2020-05-21 10:41 | Discharge Summary ---
Providers - Providers Date of Admission: 05/18/20 16:01 Date of discharge: 05/21/20 Attending physician: BRENDA MARTÍNEZ Primary care physician: BRENDA MARTÍNEZ Hospitalization Reason for admission: section, IUP at term Delivery: Procedure: repeat low transverse Episiotomy: none Laceration: none Incision: normal, dry, intact Other procedures: none complications: other (preeclampsia with severe features) Discharge diagnosis: IUP at term delivered [place] baby: twins Hospital course: Pt presented for delivery due to severe IUGR of both twins at 38w6d EGA. She underwent a repeat LTCS with lysis of adhesions. She was then found to have preeclampsia with severe features and received magnesium sulfate infusion x24 hours after delivery. She received ferrous sulfate supplementation for severe anemia. She met discharge criteria on POD3 and will follow up with [facility] in one week. Condition at discharge: Good Disposition: DC- TO HOME OR SELFCARE Plan - Discharge Medications Prescriptions: Ferrous Sulfate [Feosol 325 MG tab] 325 mg PO BID #60 tablet Ibuprofen [Motrin] 600 mg PO Q6H PRN #60 tablet PRN Reason: Pain oxyCODONE /ACETAMINOPHEN [Percocet 5/325] 1 tab PO Q6HR PRN #40 tablet PRN Reason: Pain - Provider Discharge Summary Activity: routine, no sex for 6 weeks, no heavy lifting 4 weeks, no strenuous exercise Diet: routine Instructions: routine Additional instructions: [] Smoking cessation referral if applicable(refer to patient education folder for contact #) [] Refer to [facility]'s [facility] Booklet Call your doctor immediately for: * Fever > 100.5 * Heavy vaginal bleeding ( >1 pad per hour) * Severe persistent headache * Shortness of breath * Reddened, hot, painful area to leg or breast * Drainage or odor from incision. * Keep incision clean and dry at all times and follow doctor's instructions regarding bathing/showering - Follow up plan Follow up: JENNIFER MEAZ MD [Staff Physician] - 7 Days
[2020-05-21 12:42] VITALS: BP 130/79
[2020-05-21] MEDS: IBUPROFEN 800 MG TAB PO PRN (14:07)
== END 2020-05-21 14:30 | disposition home or self-care (01) | DRG 765 ==
LOC: TRG 15:04 → LD 16:01 → OB 05-20 00:08
PROVIDERS: ADMIT Obstetrics & Gynecology; ATTEND Obstetrics & Gynecology
PROC: 10D00Z1 Extraction of Products of Conception, Low, Open Approach (ICD-10-PCS; principal; 2020-05-18)
PROC: 0DNW0ZZ Release Peritoneum, Open Approach (ICD-10-PCS; 2020-05-18)
PROC: 0UB70ZZ Excision of Bilateral Fallopian Tubes, Open Approach (ICD-10-PCS; 2020-05-18)
DX: O36.5931 Maternal care for other known or suspected poor fetal growth, third trimester, fetus 1 (principal); D62 Acute posthemorrhagic anemia; O36.5932 Maternal care for other known or suspected poor fetal growth, third trimester, fetus 2; O30.003 Twin pregnancy, unspecified number of placenta and unspecified number of amniotic sacs, third trimester; O34.211 Maternal care for low transverse scar from previous cesarean delivery; Z3A.34 34 weeks gestation of pregnancy; Z37.2 Twins, both liveborn; O14.14 Severe pre-eclampsia complicating childbirth; O99.89 Other specified diseases and conditions complicating pregnancy, childbirth and the puerperium; N73.6 Female pelvic peritoneal adhesions (postinfective); Z30.2 Encounter for sterilization
CPT/HCPCS: 36415; 83735; 85007; 85014; 85018; 85025; 85460; 86850; 86900; 86901; 88302; 88307; G0378; J0690; J1885; J2270; J2370; J2405; J2590; J2704; J2765; J3475; J3490; J7120